=== PATIENT | male | born 1990 | race Caucasian/White ===

== ENCOUNTER 2023-10-11 07:26 | Day surgery (SDC) | payer OTHER ==
[~2023-10-11] VITALS: Ht 193 cm; Wt 127.0 kg
[2023-10-11] MEDS ORDERED: cefTRIAXone SODIUM 2 GM in SODIUM CHLORIDE 0.9% 100 ML IV ONE (07:30)
[2023-10-11] MEDS ORDERED: ONDANSETRON HCl 4 MG/2 ML SDV IV ONE (07:30)
[2023-10-11] MEDS ORDERED: MORPHINE SULFATE 4 MG/ML VIAL IV ONE ×2 (07:30→08:15)
[2023-10-11] MEDS ORDERED: Diph, Acellular Pertussis, Tet 0.5 ML/VIAL (Tdap) SDV IM ONE (07:35)
[2023-10-11] MEDS ORDERED: SODIUM CHLORIDE 1,000 ML BTL IR ONE ×2 (07:35→11:01)
[2023-10-11] MEDS ORDERED: POVIDONE IODINE 0.5 OZ/BTL TOP ONE (07:35)
[2023-10-11] MEDS ORDERED: SODIUM CHLORIDE 0.9% 1,000 ML IV ONE (07:35)
[2023-10-11] MEDS ORDERED: LIDOcaine HCl 1% (Local Anesth.) 20 ML VIAL STI STA (07:35)
[2023-10-11 07:46] LABS: BASO% 0.5 % (0-3); EOS% 1.3 % (0-8); HEMATOCRIT 53.1 % (39.0-50.0); HEMOGLOBIN 17.8 g/dl (14.0-18.0); IMMATURE GRANULOCYTES 0.2 % (0.0-5.0); LYMPH% 40.2 % (15-41); MEAN CELL VOLUME 80.6 fL CALC (80.0-100.0); MEAN CORPUSCULAR HGB CONC 33.5 g/dL CAL (32.0-36.0); NEUT# 4.81 thou/uL (1.82-7.42); NEUT% 46.8 % (42-76); RED BLOOD COUNT 6.59 mill/uL (4.70-6.10); RED CELL DISTRI WIDTH 13.5 % (11.5-15.5)
[2023-10-11 08:04] VITALS: BP 139/84
[2023-10-11 08:15] LABS: ALBUMIN 4.7 g/dL (3.2-5.0); ALKALINE PHOSPHATASE 39 u/l (38-126); BILIRUBIN, TOTAL 0.8 mg/dL (0.2-1.3); BUN 14 mg/dL (9-20); BUN/CREATININE RATIO 15 (12-20 (CALC)); CHLORIDE 102 mmol/l (95-108); CREATININE 0.9 mg/dL (0.7-1.3); GFR FOR AFR.AMER. > 60 ML/MIN (>=60 (CALC)); GFR OTHER RACES > 60 ML/MIN (>=60 (CALC)); LIPASE 250 u/l (23-300); POTASSIUM 3.3 mmol/l (3.5-5.1); SGOT/AST 42 u/l (17-59); SODIUM 140 mmol/l (137-146); TOTAL PROTEIN 8.1 g/dL (6.3-8.2)
[2023-10-11 08:16] LABS: ANION GAP 14 (6-22 (CALC)); CARBON DIOXIDE 27 mmol/l (22-30)
[2023-10-11 08:31] VITALS: BP 130/75
[2023-10-11] MEDS ORDERED: HYDROmorphone HCL 2 MG/AMP IV ONE (09:00)
[2023-10-11 09:50] VITALS: BP 125/68
[2023-10-11 10:01] VITALS: BP 124/64
[2023-10-11 10:31] VITALS: BP 120/63
[2023-10-11] MEDS ORDERED: SODIUM CHLORIDE 0.9% 10 ML SYR ONE (10:45)
[2023-10-11] MEDS ORDERED: LACTATED RINGER'S 1,000 ML IV ONE (10:46)
[2023-10-11] MEDS ORDERED: FAMOTIDINE 10MG/ML 2ML SDV IV ONE (10:47)
[2023-10-11] MEDS ORDERED: LIDOcaine HCl 1% (Local Anesth.) 20 ML VIAL ONE (11:01)
[2023-10-11] MEDS ORDERED: STERILE WATER FOR IRRIGATION 1,000 ML BTL IR ONE (11:01)
[2023-10-11] MEDS ORDERED: LIDOCAINE W/ EPINEPHRINE 10 MG/ML INJ ONE (11:11)
[2023-10-11] MEDS ORDERED: KETOROLAC TROMETHAMINE 30 MG/ML SDV ONE (12:17)
[2023-10-11] MEDS ORDERED: ACETAMINOPHEN 100 ML IV ONE (12:17)
[2023-10-11] MEDS ORDERED: PERCOCET 5/325M1 TAB PO (12:21)
[2023-10-11 13:33] VITALS: BP 117/82
[2023-10-11] MEDS ORDERED: LIDOCAINE HCL 2% 2ML SDV IV ONE (13:49)
[2023-10-11] MEDS ORDERED: MIDAZOLAM HCL 2 MG/2 ML VIAL IV ONE (13:49)
[2023-10-11] MEDS ORDERED: LACTATED RINGER'S 1,000 ML BAG IV ONE (13:49)
[2023-10-11] MEDS ORDERED: PROPOFOL 200 MG/20 ML VIAL IV ONE (13:49)
[2023-10-11] MEDS ORDERED: KETAMINE HCL 50 MG/ML 10 ML VIAL IV ONE (13:49)
== END 2023-10-11 13:00 | disposition home or self-care (01) | DRG 605 ==
LOC: ED 07:26 → ED-I 09:10 → ED 09:25 → ORM 09:26
PROVIDERS: Family Medicine; ATTEND Surgery
PROC: 0HQ0XZZ Repair Scalp Skin, External Approach (ICD-10-PCS; principal; 2023-10-11)
PROC: 0JQ03ZZ Repair Scalp Subcutaneous Tissue and Fascia, Percutaneous Approach (ICD-10-PCS; 2023-10-11)
DX: S01.01XA Laceration without foreign body of scalp, initial encounter (principal); S20.412A Abrasion of left back wall of thorax, initial encounter; S60.512A Abrasion of left hand, initial encounter; S06.0X0A Concussion without loss of consciousness, initial encounter; R40.2412 Glasgow coma scale score 13-15, at arrival to emergency department; I10 Essential (primary) hypertension; I45.6 Pre-excitation syndrome; V20.49XA Other motorcycle driver injured in collision with pedestrian or animal in traffic accident, initial encounter
CPT/HCPCS: J0131; Q9967

== ENCOUNTER 2023-10-12 23:37 | Emergency (ER) | payer OTHER ==
[~2023-10-12] VITALS: Ht 193 cm; Wt 80.0 kg
[~2023-10-12 23:37] MED LIST: PERCOCET 5/325M1 TAB PO
[2023-10-13 00:01] VITALS: BP 131/76
[2023-10-13] MEDS ORDERED: KETOROLAC TROMETHAMINE 30 MG/ML SDV IM ONE (00:20)
[2023-10-13 00:33] VITALS: BP 130/79
[2023-10-13 00:42] VITALS: BP 130/79
== END 2023-10-13 00:31 | disposition home or self-care (01) | DRG 556 ==
LOC: ED 23:37
DX: M79.89 Other specified soft tissue disorders (principal); S06.0XAD Concussion with loss of consciousness status unknown, subsequent encounter; S01.01XD Laceration without foreign body of scalp, subsequent encounter; I10 Essential (primary) hypertension; I45.6 Pre-excitation syndrome; V29.99XD Rider (driver) (passenger) of other motorcycle injured in unspecified traffic accident, subsequent encounter